=== PATIENT | male | born 1980 | race Caucasian/White ===

== ENCOUNTER 2017-03-01 14:30 | Emergency (ER) | payer OTHER ==
[2017-03-01 14:54] VITALS: BP 110/63; PULSE 71; RESP 18; TEMP 97.6
--- NOTE | 2017-03-01 15:15 | ED ---
General Adult HPI - General Chief complaint: Recheck/Abnormal Lab/Rx Stated complaint: Rx Refill Time Seen by Provider: 03/01/17 14:59 Source: patient, RN notes reviewed Mode of arrival: ambulatory Limitations: no limitations - History of Present Illness Initial comments: 36-year-old male presents to the emergency department with a chief complaint of medication refill. He states that he needs his Xanax and Adderall filled. He states he recently moved here from [place] and he contacted [facility] and is unable to get in for them for 6 months he states that he was informed to come here to help fill the gap. Patient states that he was hoping that maybe we can give him a prescription for these. He is hoping that he can get a month's supply. Patient denies any recent fever, chills, shortness of breath, chest pain, back pain, abdominal pain, nausea vomiting, numbness or tingling, dysuria or hematuria, constipation or diarrhea, headaches or visual changes, or any other current symptoms. - Related Data Home Medications Medication Instructions Recorded Confirmed ALPRAZolam [Xanax] 1 mg PO TID PRN 03/01/17 03/01/17 Dextroamphetamine/Amphetamine 25 mg PO QAM 03/01/17 03/01/17 [Adderall Xr] Allergies Allergy/AdvReac Type Severity Reaction Status Date / Time No Known Allergies Allergy Verified 03/01/17 14:51 Review of Systems ROS Statement: Those systems with pertinent positive or pertinent negative responses have been documented in the HPI. ROS Other: All systems not noted in ROS Statement are negative. Past Medical History Past Medical History: No Reported History History of Any Multi-Drug Resistant Organisms: None Reported Past Surgical History: Back Surgery Past Psychological History: ADD/ADHD, Anxiety Smoking Status: Current every day smoker Past Alcohol Use History: None Reported Past Drug Use History: None Reported General Exam Limitations: no limitations General appearance: alert, in no apparent distress ENT exam: Present: normal exam, mucous membranes moist Neck exam: Present: normal inspection. Absent: tenderness, meningismus, lymphadenopathy Respiratory exam: Present: normal lung sounds bilaterally. Absent: respiratory distress, wheezes, rales, rhonchi, stridor Cardiovascular Exam: Present: regular rate, normal rhythm, normal heart sounds. Absent: systolic murmur, diastolic murmur, rubs, gallop, clicks Extremities exam: Present: normal inspection, full ROM, normal capillary refill. Absent: tenderness, pedal edema, joint swelling, calf tenderness Neurological exam: Present: alert, oriented X3 Psychiatric exam: Present: normal affect, normal mood Skin exam: Present: warm, dry, intact, normal color. Absent: rash Course Vital Signs 03/01/17 14:51 Temperature 97.6 F Pulse Rate 71 Respiratory 18 Rate Blood Pressure 110/63 O2 Sat by Pulse 96 Oximetry Medical Decision Making - Medical Decision Making 36-year-old male presents emergency Department in with a chief complaint of medication refill. At this time a maps report was run that showed that he filled 90 and external 11:15 private pay and then also 90 Xanax with private pay as well as 21 Xanax 11 7 private pay. At this time I do not even see any Adderall given to the patient since January. At this time I discussed with the patient I cannot refill his medications. I discussed that he needs to follow- up with his doctor. Patient states that all questions have the she'll be discharged. Disposition Clinical Impression: Encounter for medication refill Disposition: HOME SELF-CARE Condition: Stable Instructions: Alprazolam (By mouth) Additional Instructions: Please use medication as discussed. Please follow up with family doctor if symptoms have not improved over the next two days. Please return to the emergency room if your symptoms increase or worsen or for any other concerns. Please follow up with Dr. Sutherland to look for any additional medications that you may need. Referrals: Favio Sutherland MD [STAFF PHYSICIAN] - 1-2 days Time of Disposition: 15:15
== END 2017-03-01 15:24 | disposition home or self-care (01) ==
LOC: EC 14:30
DX: Z76.0 Encounter for issue of repeat prescription (principal); F90.9 Attention-deficit hyperactivity disorder, unspecified type; F17.200 Nicotine dependence, unspecified, uncomplicated; Z79.899 Other long term (current) drug therapy
CPT/HCPCS: 99282

== ENCOUNTER → 2018-01-03 | Outpatient (CLI) | payer OTHER ==
--- NOTE | 2018-01-03 15:28 | XR ---
EXAMINATION TYPE: XR thoracic spine complete DATE OF EXAM: 01/03/2018 COMPARISON: NONE HISTORY: Pain Alignment is anatomic. There is no compression deformities. Vertebral body height and disc interspa augusto are maintained. IMPRESSION: 1. No acute abnormality. If symptoms persist recommend follow-up MRI.
--- NOTE | 2018-01-03 15:37 | XR ---
EXAM TYPE: LUMBAR SPINE X RAY SERIES COMPARISON: NONE HISTORY: Back pain TECHNIQUE: 7 views are submitted according flexion-extension lateral views. FINDINGS: There is a chronic appearing superior endplate compression fracture of L2. Vertebral body height is m aintained at remaining levels. Disc spaces are within normal limits. No spondylolisthesis. No diagnos tic evidence of spondylolysis. Pedicles are intact. Transverse processes appear intact. Alignment appears to be stable on flexion and extension views IMPRESSION: 1. Chronic appearing compression fracture superior endplate L2.
== END | disposition home or self-care (01) ==
LOC: RADXRMAIN 14:03
DX: M84.48XA Pathological fracture, other site, initial encounter for fracture (principal); M54.6 Pain in thoracic spine
CPT/HCPCS: 72072; 72114

== ENCOUNTER → 2018-05-05 | Outpatient (CLI) | payer OTHER ==
--- NOTE | 2018-05-05 13:40 | MR ---
EXAMINATION TYPE: MR lumbar spine wo con DATE OF EXAM: 05/05/2018 COMPARISON: Prior plain film 01/03/2018 HISTORY: Back pain TECHNIQUE: Multiplanar, multisequence images of the lumbar spine were acquired. L1-L2: Normal disc appearance without desiccation. No herniation, protrusion or disc bulging. No ca nal stenosis is present. Foramina are patent bilaterally. L2-L3: Minimal posterior disc bulge causes mild anterior mass effect on the thecal sac. L3-L4: Normal disc appearance without desiccation. No herniation, protrusion or disc bulging. No ca nal stenosis is present. Foramina are patent bilaterally. L4-L5: Minimal posterior disc bulge contacts the anterior thecal sac. No significant central stenosis or foraminal encroachment. L5-S1: Normal disc appearance without desiccation. No herniation, protrusion or disc bulging. No ca nal stenosis is present. Foramina are patent bilaterally. Lumbar segments are intact. No paraspinal masses are identified. Conus medullaris has a normal appe arance. Mild anterior wedging at L2 is again noted with slight resulting kyphosis. Bone marrow signal is maintained. Lumbar vertebral bodies show maintained alignment. 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 IMPRESSION: Mild degenerative disc. Chronic anterior wedge compression deformity L2.
== END | disposition home or self-care (01) ==
LOC: RADMRIMAIN 09:52
PROVIDERS: ATTEND Physician Assistant Medical
DX: M51.36 Other intervertebral disc degeneration, lumbar region (principal); M43.8X6 Other specified deforming dorsopathies, lumbar region
CPT/HCPCS: 72148

== ENCOUNTER 2019-03-01 18:36 | Emergency (ER) | payer OTHER ==
[2019-03-01 18:45] VITALS: TEMP 97.9
[2019-03-01] MEDS ORDERED: SODIUM CHLORIDE 0.9% 500 ML 500 ML IV STA (18:52)
[2019-03-01] MEDS ORDERED: LORazepam 2 MG/ML INJ IV STA (18:52)
[2019-03-01] MEDS ORDERED: SODIUM CHLORIDE 0.9% 1,000 ML IV STA ×3 (18:52→21:13)
--- NOTE | 2019-03-01 18:55 | ED ---
Alcohol HPI - General Chief Complaint: Psychiatric Symptoms Stated Complaint: ETOH withdrawal Time Seen by Provider: 03/01/19 18:52 Source: patient, family Mode of arrival: ambulatory Limitations: no limitations, altered mental status - History of Present Illness Initial Comments: This is a 30-year-old male the ER for evaluation of alcohol intoxication delirium hospital call withdrawal. Denying other drug abuse today. 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(s) Previous Visits for Alcohol Intoxication?: Yes Recent Trauma: No Associated Symptoms: nausea, depression Treatments Prior to Arrival: none Chronic Alcohol Use: Yes - Related Data Home Medications Medication Instructions Recorded Confirmed ALPRAZolam [Xanax] 1 mg PO TID PRN 03/01/17 03/01/19 Omeprazole 20 mg PO DAILY 03/01/19 03/01/19 Rosuvastatin Calcium [Crestor] 40 mg PO HS 03/01/19 03/01/19 Allergies Allergy/AdvReac Type Severity Reaction Status Date / Time No Known Allergies Allergy Verified 03/01/19 23:12 Review of Systems ROS Statement: Those systems with pertinent positive or pertinent negative responses have been documented in the HPI. ROS Other: All systems not noted in ROS Statement are negative. Past Medical History Past Medical History: No Reported History History of Any Multi-Drug Resistant Organisms: None Reported Past Surgical History: Back Surgery Past Psychological History: ADD/ADHD, Anxiety Smoking Status: Current every day smoker Past Alcohol Use History: Daily, Heavy Past Drug Use History: None Reported General Exam Limitations: no limitations General appearance: alert, anxious, in distress Head exam: Present: atraumatic, normocephalic, normal inspection Eye exam: Present: normal appearance, PERRL, EOMI. Absent: scleral icterus, con junctival injection, periorbital swelling ENT exam: Present: normal exam, mucous membranes moist Neck exam: Present: normal inspection. Absent: tenderness, meningismus, lymphadenopathy Respiratory exam: Present: normal lung sounds bilaterally. Absent: respiratory distress, wheezes, rales, rhonchi, stridor Cardiovascular Exam: Present: normal rhythm, tachycardia, normal heart sounds. Absent: systolic murmur, diastolic murmur, rubs, gallop, clicks GI/Abdominal exam: Present: soft, normal bowel sounds. Absent: distended, tenderness, guarding, rebound, rigid Extremities exam: Present: normal inspection, full ROM, normal capillary refill. Absent: tenderness, pedal edema, joint swelling, calf tenderness Back exam: Present: normal inspection Neurological exam: Present: alert, oriented X3, CN II-XII intact Psychiatric exam: Present: normal affect, normal mood Skin exam: Present: warm, dry, intact, normal color. Absent: rash Course Vital Signs 03/01/19 03/01/19 18:41 21:31 Temperature 97.9 F Pulse Rate 131 H 85 Respiratory 18 17 Rate Blood Pressure 131/89 108/80 O2 Sat by Pulse 93 L 96 Oximetry - Reevaluation(s) Reevaluation #1: 03/01/19 23:14 Medical records reviewed patient is significantly elevated alcohol showing no signs withdrawal currently Reevaluation #2: 03/01/19 23:14 Patient is not homicidal or suicidal no need for psychiatric evaluation Reevaluation #3: 03/01/19 23:14 Spoke with patient at length, questions answered regarding withdrawal able to return if symptoms worsen Medical Decision Making - Medical Decision Making 38 male presented for evaluation of alcohol abuse alcoholism. Patient does ad martinez to drinking today, concerned he wants help with detox patient given instructions here by alcohol withdrawal will be given medication for a few days and patient can be discharged home - Lab Data Result diagrams: 03/01/19 19:07 03/01/19 19:07 Lab Results 03/01/19 03/01/19 Range/Units 19:07 19:07 WBC 9.0 (3.8-10.6) k/uL RBC 5.32 (4.30-5.90) m/uL Hgb 19.0 H (13.0-17.5) gm/dL Hct 51.1 (39.0-53.0) % MCV 96.1 (80.0-100.0) fL MCH 35.7 H (25.0-35.0) pg MCHC 37.2 H (31.0-37.0) g/dL RDW 11.8 (11.5-15.5) % Plt Count 235 (150-450) k/uL Neutrophils % 28 % Lymphocytes % 62 % Monocytes % 4 % Eosinophils % 3 % Basophils % 1 % Neutrophils # 2.5 (1.3-7.7) k/uL Lymphocytes # 5.6 H (1.0-4.8) k/uL Monocytes # 0.4 (0-1.0) k/uL Eosinophils # 0.3 (0-0.7) k/uL Basophils # 0.1 (0-0.2) k/uL Manual Slide Review Performed Poikilocytosis (manual Present Sodium 144 (137-145) mmol/L Potassium 4.7 (3.5-5.1) mmol/L Chloride 109 H (98-107) mmol/L Carbon Dioxide 23 (22-30) mmol/L Anion Gap 12 mmol/L BUN 23 H (9-20) mg/dL Creatinine 1.09 (0.66-1.25) mg/dL Est GFR (CKD-EPI)AfAm >90 (>60 ml/min/1.73 sqM) Est GFR (CKD-EPI)NonAf 86 (>60 ml/min/1.73 sqM) Glucose 116 H (74-99) mg/dL Calcium 9.1 (8.4-10.2) mg/dL Phosphorus 4.3 (2.5-4.5) mg/dL Magnesium 2.1 (1.6-2.3) mg/dL Total Bilirubin 0.5 (0.2-1.3) mg/dL AST 46 (17-59) U/L ALT 21 (21-72) U/L Alkaline Phosphatase 81 (38-126) U/L Total Protein 8.6 H (6.3-8.2) g/dL Albumin 4.8 (3.5-5.0) g/dL Lipase 322 H (23-300) U/L Salicylates 1.0 mg/dL Acetaminophen <10.0 ug/mL Serum Alcohol 272 H* mg/dL Disposition Clinical Impression: Alcohol abuse, Alcohol withdrawal Disposition: HOME SELF-CARE Condition: Fair Instructions (If sedation given, give patient instructions): Alcohol Withdrawal (ED) Is patient prescribed a controlled substance at d/c from ED?: No Referrals: Paolo Dominguez NPC [Primary Care Provider] - 1-2 days
[2019-03-01 19:23] LABS: ALT 21 U/L (21-72); AST 46 U/L (17-59); Acetaminophen <10.0 ug/mL; African American GFR (CKD) >90 (>60 ml/min/1.73 sqM); Albumin 4.8 g/dL (3.5-5.0); Alkaline Phosphatase 81 U/L (38-126); Anion Gap 12 mmol/L; Blood Urea Nitrogen 23 mg/dL (9-20); Calcium 9.1 mg/dL (8.4-10.2); Carbon Dioxide 23 mmol/L (22-30); Chloride 109 mmol/L (98-107); Glucose 116 mg/dL (74-99); Magnesium 2.1 mg/dL (1.6-2.3); Non-African American GFR(CKD) 86 (>60 ml/min/1.73 sqM); Phosphorus 4.3 mg/dL (2.5-4.5); Potassium 4.7 mmol/L (3.5-5.1); Sodium 144 mmol/L (137-145); Total Bilirubin 0.5 mg/dL (0.2-1.3); Total Protein 8.6 g/dL (6.3-8.2)
[2019-03-01 19:27] LABS: Basophils # (A) 0.1 k/uL (0-0.2); Basophils % (A) 1 %; Eosinophils # (A) 0.3 k/uL (0-0.7); Eosinophils % (A) 3 %; HCT 51.1 % (39.0-53.0); Lymphocytes # (A) 5.6 k/uL (1.0-4.8); Lymphocytes % (A) 62 %; MCH 35.7 pg (25.0-35.0); MCHC 37.2 g/dL (31.0-37.0); MCV 96.1 fL (80.0-100.0); Mean Platelet Volume 5.8; Monocytes # (A) 0.4 k/uL (0-1.0); Monocytes % (A) 4 %; Neutrophils # (A) 2.5 k/uL (1.3-7.7); Neutrophils % (A) 28 %; Platelet Count 235 k/uL (150-450); RBC 5.32 m/uL (4.30-5.90); RDW 11.8 % (11.5-15.5)
[2019-03-01 19:32] LABS: Alcohol 272 mg/dL
[2019-03-01 19:35] LABS: Poikilocytosis (M) Present
[2019-03-01] MEDS ORDERED: THIAMINE 100 MG in SODIUM CHLORIDE 0.9% 50 ML IVPB STA (21:13)
[2019-03-01] MEDS ORDERED: ONDANSETRON 4 MG/2 ML VIAL IVP STA (23:13)
[2019-03-01] MEDS ORDERED: DIAZEPAM 5 MG/ML 2 ML INJ IVP STA (23:13)
[2019-03-01] MEDS ORDERED: PANTOPRAZOLE 40 MG/10 ML VIAL IVP STA (23:13)
[2019-03-01] MEDS ORDERED: ONDANSETRON 4 MG ODT STARTER PACK 2 TAB BTL PO STA (23:17)
--- NOTE | 2019-03-01 23:18 | ED ---
Medical Decision Making - Medical Decision Making This is an addendum resected prescription of controlled substance, Valium, 3 days no history of substance abuse aside from alcohol - Lab Data Result diagrams: 03/01/19 19:07 03/01/19 19:07 Lab Results 03/01/19 03/01/19 Range/Units 19:07 19:07 WBC 9.0 (3.8-10.6) k/uL RBC 5.32 (4.30-5.90) m/uL Hgb 19.0 H (13.0-17.5) gm/dL Hct 51.1 (39.0-53.0) % MCV 96.1 (80.0-100.0) fL MCH 35.7 H (25.0-35.0) pg MCHC 37.2 H (31.0-37.0) g/dL RDW 11.8 (11.5-15.5) % Plt Count 235 (150-450) k/uL Neutrophils % 28 % Lymphocytes % 62 % Monocytes % 4 % Eosinophils % 3 % Basophils % 1 % Neutrophils # 2.5 (1.3-7.7) k/uL Lymphocytes # 5.6 H (1.0-4.8) k/uL Monocytes # 0.4 (0-1.0) k/uL Eosinophils # 0.3 (0-0.7) k/uL Basophils # 0.1 (0-0.2) k/uL Manual Slide Review Performed Poikilocytosis (manual Present Sodium 144 (137-145) mmol/L Potassium 4.7 (3.5-5.1) mmol/L Chloride 109 H (98-107) mmol/L Carbon Dioxide 23 (22-30) mmol/L Anion Gap 12 mmol/L BUN 23 H (9-20) mg/dL Creatinine 1.09 (0.66-1.25) mg/dL Est GFR (CKD-EPI)AfAm >90 (>60 ml/min/1.73 sqM) Est GFR (CKD-EPI)NonAf 86 (>60 ml/min/1.73 sqM) Glucose 116 H (74-99) mg/dL Calcium 9.1 (8.4-10.2) mg/dL Phosphorus 4.3 (2.5-4.5) mg/dL Magnesium 2.1 (1.6-2.3) mg/dL Total Bilirubin 0.5 (0.2-1.3) mg/dL AST 46 (17-59) U/L ALT 21 (21-72) U/L Alkaline Phosphatase 81 (38-126) U/L Total Protein 8.6 H (6.3-8.2) g/dL Albumin 4.8 (3.5-5.0) g/dL Lipase 322 H (23-300) U/L Salicylates 1.0 mg/dL Acetaminophen <10.0 ug/mL Serum Alcohol 272 H* mg/dL Disposition Clinical Impression: Alcohol abuse, Alcohol withdrawal Disposition: HOME SELF-CARE Condition: Fair Instructions (If sedation given, give patient instructions): Alcohol Withdrawal (ED) Prescriptions: Diazepam [Valium] 5 mg PO Q8HR PRN 3 Days #9 tab PRN Reason: Alcohol Withdrawal Is patient prescribed a controlled substance at d/c from ED?: Yes When asked, does pt state using other controlled substances?: No If prescribed controlled substance>3 days was MAPS reviewed?: Prescribed <3 Days Referrals: Paolo Dominguez, NPC [Primary Care Provider] - 1-2 days
[2019-03-01 23:19] LABS: Appearance,Urine Clear (Clear); Bilirubin,Urine Negative (Negative); Blood,Urine Negative (Negative); Color,Urine Colorless; Glucose,Urine (UA) Negative (Negative); Ketones,Urine Negative (Negative); Leukocyte Esterase,Urine Negative (Negative); Nitrite,Urine Negative (Negative); Protein,Urine Negative (Negative); Specific Gravity,Urine 1.007 (1.001-1.035); Urobilinogen,Urine <2.0 mg/dL (<2.0)
[2019-03-01 23:30] LABS: Amphetamine Screen,Urine Not Detected (NotDetected); Barbiturate Screen,Urine Not Detected (NotDetected); Benzodiazepines Screen,Urine Detected (NotDetected); Cocaine Screen,Urine Not Detected (NotDetected); Methadone Screen, Urine Not Detected (NotDetected); Opiate Screen,Urine Not Detected (NotDetected); Oxycodone Screen, Urine Not Detected (NotDetected); Phencyclidine Screen,Urine Not Detected (NotDetected); Tricyclic Antidepressant,Urine Not Detected (NotDetected); Urn Cannabinoid Scrn Not Detected (NotDetected)
[2019-03-01 23:40] VITALS: BP 106/82; PULSE 81; RESP 18
== END 2019-03-02 00:33 | disposition home or self-care (01) ==
LOC: EC 18:36
DX: F10.239 Alcohol dependence with withdrawal, unspecified (principal); F32.9 Major depressive disorder, single episode, unspecified; F17.200 Nicotine dependence, unspecified, uncomplicated; Z79.899 Other long term (current) drug therapy
CPT/HCPCS: 99284; 96374; 96375 ×4; 96361 ×4; 82075; 36415; 80053; 83690; 83735; 84100; 85025; 81003; 80306; 83520; G0480 ×2; J2060; J3411; J3360; J2405; S0119; C9113; 80320; 80329

== ENCOUNTER 2019-04-30 17:32 | Inpatient (IN) | payer MEDICAID, OTHER ==
--- NOTE | 2019-04-30 18:31 | ED ---
General Adult HPI - General Source: patient, EMS Mode of arrival: EMS Limitations: no limitations <Codey Rainey - Last Filed: 04/30/19 20:26> <Silvano Walker - Last Filed: 05/03/19 16:25> - General Chief complaint: Alcohol Stated complaint: ETOH Time Seen by Provider: 04/30/19 17:58 - History of Present Illness Initial comments: Dictation was produced using [employer] dictation software. please excuse any grammatical, word or spelling errors. Chief Complaint: 38-year-old male past medical history of alcohol abuse presents with suicidal ideation. History of Present Illness: He-year-old male using daily alcoholic. Patient was brought in by EMS. Patient seeking help. He has been feeling suicidal for the last several months. Patient states he is depressed because he is living a poor example to his one child that he is so custody 4. States that he is a daily drinker. He does feel like harming himself because he is depressed about his current life. He suppress that he still lives with his parents and his 30 years old. Patient plans to sit in the garage with the car on in hopes that he would harm himself. She states he had multiple colic beverages today. The ROS documented in this emergency department record has been reviewed and confirmed by me. Those systems with pertinent positive or negative responses have been documented in the HPI. All other systems are other negative and/or noncontributory. PHYSICAL EXAM: General Impression: Alert and oriented x3, not in acute distress, smells of EtOH HEENT: Normocephalic atraumatic, extra-ocular movements intact, pupils equal and reactive to light bilaterally, mucous membranes moist. Cardiovascular: Heart regular rate and rhythm, S1&S2 audible, no murmurs, rubs or gallops Chest: Lungs clear to auscultation bilaterally, no rhonchi, no wheeze, no rales Abdomen: Bowel sounds present, abdomen soft, non-tender, non-distended, no organomegaly Musculoskeletal: Pulses present and equal in all extremities, no peripheral edema Motor: no focal deficits noted Neurological: CN II-XII grossly intact, no focal motor or sensory deficits noted Skin: Intact with no visualized rashes Psych: Depressed ED course: 38 y Old male presents with EtOH intoxication and suicidal ideation. As upon arrival are within acceptable limits. Patient has suicide with detailed plan. No homicidal ideation. No visual auditory hallucinations. Laboratory evaluation obtained. CBC unremarkable. Metabolic panel shows sodium 146. There is mild anion gap acidosis likely secondary to alcoholic ketoacidosis. Electrolyte abnormality likely secondary to be beer potomania. His alcohol level is 236. Patient given intravenous fluids. Pending clinical sobriety for EPS evaluation. He was monitored for possible development of EtOH withdrawal. Suicide precautions in place. (Codey Rainey) - Related Data Home Medications Medication Instructions Recorded Confirmed ALPRAZolam [Xanax] 1 mg PO TID PRN 03/01/17 03/01/19 Omeprazole 20 mg PO DAILY 03/01/19 03/01/19 Rosuvastatin Calcium [Crestor] 40 mg PO HS 03/01/19 03/01/19 Previous Rx's Medication Instructions Recorded Diazepam [Valium] 5 mg PO Q8HR PRN 3 Days #9 tab 03/01/19 Allergies Allergy/AdvReac Type Severity Reaction Status Date / Time No Known Allergies Allergy Verified 03/01/19 23:12 Review of Systems ROS Other: All systems not noted in ROS Statement are negative. <Codey Rainey - Last Filed: 04/30/19 20:26> ROS Other: All systems not noted in ROS Statement are negative. <Silvano Walker - Last Filed: 05/03/19 16:25> ROS Statement: Those systems with pertinent positive or pertinent negative responses have been documented in the HPI. Past Medical History Past Medical History: No Reported History History of Any Multi-Drug Resistant Organisms: None Reported Past Surgical History: Back Surgery Past Psychological History: ADD/ADHD, Anxiety Smoking Status: Current every day smoker Past Alcohol Use History: Daily, Heavy Past Drug Use History: None Reported <Codey Rainey - Last Filed: 04/30/19 20:26> - Past Family History Father Family Medical History: Diabetes Mellitus Mother Family Medical History: Diabetes Mellitus Additional Family Medical History / Comment(s): immune deficiency <Silvano Walker - Last Filed: 05/03/19 16:25> General Exam Limitations: no limitations <Codey Rainey - Last Filed: 04/30/19 20:26> Course Vital Signs 01/20/20 01/21/20 18:05 01:10 Temperature 98.3 F 98.2 F Pulse Rate 85 82 Respiratory 20 17 Rate Blood Pressure 125/69 113/76 O2 Sat by Pulse 95 100 Oximetry Medical Decision Making - Lab Data Result diagrams: 04/30/19 19:21 04/30/19 19:21 <Codey Rainey - Last Filed: 04/30/19 20:26> - Lab Data Result diagrams: 04/30/19 19:21 05/01/19 09:06 <Silvano Walker - Last Filed: 05/03/19 16:25> - Medical Decision Making 38 male to the ED for psychiatric evaluation also intoxicated (alcohol) patient will be transferred for inpatient psychiatric evaluation and treatment. (Silvano Walker) - Lab Data Lab Results 04/30/19 04/30/19 04/30/19 Range/Units 19:21 19:21 19:29 WBC 6.7 (3.8-10.6) k/uL RBC 5.22 (4.30-5.90) m/uL Hgb 18.0 H (13.0-17.5) gm/dL Hct 51.9 (39.0-53.0) % MCV 99.4 (80.0-100.0) fL MCH 34.4 (25.0-35.0) pg MCHC 34.6 (31.0-37.0) g/dL RDW 12.1 (11.5-15.5) % Plt Count 179 (150-450) k/uL Neutrophils % 39 % Lymphocytes % 53 % Monocytes % 3 % Eosinophils % 2 % Basophils % 1 % Neutrophils # 2.6 (1.3-7.7) k/uL Lymphocytes # 3.6 (1.0-4.8) k/uL Monocytes # 0.2 (0-1.0) k/uL Eosinophils # 0.1 (0-0.7) k/uL Basophils # 0.0 (0-0.2) k/uL Sodium 146 H (137-145) mmol/L Potassium 3.9 (3.5-5.1) mmol/L Chloride 113 H (98-107) mmol/L Carbon Dioxide 21 L (22-30) mmol/L Anion Gap 12 mmol/L BUN 12 (9-20) mg/dL Creatinine 0.97 (0.66-1.25) mg/dL Est GFR (CKD-EPI)AfAm >90 (>60 ml/min/1.73 sqM) Est GFR (CKD-EPI)NonAf >90 (>60 ml/min/1.73 sqM) Glucose 110 H (74-99) mg/dL Calcium 8.9 (8.4-10.2) mg/dL Magnesium 2.1 (1.6-2.3) mg/dL Urine Opiates Screen Not Detected (NotDetected) Ur Oxycodone Screen Not Detected (NotDetected) Urine Methadone Screen Not Detected (NotDetected) Ur Propoxyphene Screen Not Detected (NotDetected) Ur Barbiturates Screen Not Detected (NotDetected) U Tricyclic Antidepress Not Detected (NotDetected) Ur Phencyclidine Scrn Not Detected (NotDetected) Ur Amphetamines Screen Not Detected (NotDetected) U Methamphetamines Scrn Not Detected (NotDetected) U Benzodiazepines Scrn Detected H (NotDetected) Urine Cocaine Screen Not Detected (NotDetected) U Marijuana (THC) Screen Not Detected (NotDetected) Serum Alcohol 236 H* mg/dL Disposition <Codey Rainey - Last Filed: 04/30/19 20:26> Is patient prescribed a controlled substance at d/c from ED?: No <Silvano Walker - Last Filed: 05/03/19 16:25> Clinical Impression: Depression, Alcohol intoxication, Suicidal ideation Disposition: TRANSFER TO PSYCH HOSP/UNIT Condition: Fair
[2019-04-30] MEDS ORDERED: NICOTINE 14MG/24HR PATCH TRANSDERM STA (19:18)
[2019-04-30 19:33] LABS: Basophils % (A) 1 %; Eosinophils # (A) 0.1 k/uL (0-0.7); Eosinophils % (A) 2 %; HCT 51.9 % (39.0-53.0); Lymphocytes # (A) 3.6 k/uL (1.0-4.8); Lymphocytes % (A) 53 %; MCH 34.4 pg (25.0-35.0); MCHC 34.6 g/dL (31.0-37.0); MCV 99.4 fL (80.0-100.0); Mean Platelet Volume 7.5; Monocytes # (A) 0.2 k/uL (0-1.0); Monocytes % (A) 3 %; Neutrophils # (A) 2.6 k/uL (1.3-7.7); Neutrophils % (A) 39 %; Platelet Count 179 k/uL (150-450); RBC 5.22 m/uL (4.30-5.90); RDW 12.1 % (11.5-15.5); WBC 6.7 k/uL (3.8-10.6)
[2019-04-30 19:42] LABS: African American GFR (CKD) >90 (>60 ml/min/1.73 sqM); Anion Gap 12 mmol/L; Blood Urea Nitrogen 12 mg/dL (9-20); Calcium 8.9 mg/dL (8.4-10.2); Carbon Dioxide 21 mmol/L (22-30); Chloride 113 mmol/L (98-107); Glucose 110 mg/dL (74-99); Magnesium 2.1 mg/dL (1.6-2.3); Non-African American GFR(CKD) >90 (>60 ml/min/1.73 sqM); Potassium 3.9 mmol/L (3.5-5.1); Sodium 146 mmol/L (137-145)
[2019-04-30 19:46] LABS: Alcohol 236 mg/dL
[2019-04-30 19:52] LABS: Amphetamine Screen,Urine Not Detected (NotDetected); Barbiturate Screen,Urine Not Detected (NotDetected); Benzodiazepines Screen,Urine Detected (NotDetected); Cocaine Screen,Urine Not Detected (NotDetected); Methadone Screen, Urine Not Detected (NotDetected); Opiate Screen,Urine Not Detected (NotDetected); Oxycodone Screen, Urine Not Detected (NotDetected); Phencyclidine Screen,Urine Not Detected (NotDetected); Tricyclic Antidepressant,Urine Not Detected (NotDetected); Urn Cannabinoid Scrn Not Detected (NotDetected)
[2019-05-01] MEDS ORDERED: MAG HYDROX/AL HYDROX/SIMETH 30 ML CUP PO PRN (04:24)
[2019-05-01] MEDS ORDERED: ZIPRASIDONE 20 MG VIAL IM PRN (04:24)
[2019-05-01] MEDS ORDERED: MAGNESIUM HYDROXIDE 2,400 MG/10 ML CUP PO PRN (04:24)
[2019-05-01] MEDS: NICOTINE 21MG/24HR PATCH TRANSDERM SCH (09:21)
[2019-05-01 09:49] LABS: ALT 20 U/L (4-49); AST 52 U/L (17-59); African American GFR (CKD) >90 (>60 ml/min/1.73 sqM); Albumin 4.7 g/dL (3.5-5.0); Alkaline Phosphatase 61 U/L (38-126); Anion Gap 6 mmol/L; Bilirubin, Delta 0.8 mg/dL (0.0-0.2); Bilirubin,Unconjugated 1.2 mg/dL (0.0-1.1); Blood Urea Nitrogen 14 mg/dL (9-20); Calcium 9.3 mg/dL (8.4-10.2); Carbon Dioxide 27 mmol/L (22-30); Chloride 107 mmol/L (98-107); Cholesterol 164 mg/dL (<200); Glucose 90 mg/dL (74-99); HDL Cholesterol 73 mg/dL (40-60); LDL Cholesterol,Calculated 62 mg/dL (0-99); Non-African American GFR(CKD) >90 (>60 ml/min/1.73 sqM); Sodium 140 mmol/L (137-145); Total Protein 8.1 g/dL (6.3-8.2); Triglycerides 144 mg/dL (<150)
[2019-05-01 09:56] LABS: Potassium 4.6 mmol/L (3.5-5.1)
[2019-05-01] MEDS: LORazepam 1 MG TAB PO PRN ×2 (11:40→17:44)
--- NOTE | 2019-05-01 11:41 | P.HP ---
Psychiatric H&P - . History & Physical: Allergies Allergy/AdvReac Type Severity Reaction Status Date / Time No Known Allergies Allergy Verified 03/01/19 23:12 Vital Signs Temp 97.0 F L 05/01/19 04:46 Pulse 78 05/01/19 04:46 Resp 16 05/01/19 04:46 BP 108/85 05/01/19 04:46 Pulse Ox 96 05/01/19 04:46 Intake & Output 04/30/19 05/01/19 05/01/19 18:59 06:59 18:59 Weight 75.296 kg 61.802 kg Laboratory Last Values WBC 6.7 k/uL (3.8-10.6) 04/30/19 19: RBC 5.22 m/uL (4.30-5.90) 04/30/19 19: Hgb 18.0 gm/dL (13.0-17.5) H 04/30/19 19: Hct 51.9 % (39.0-53.0) 04/30/19 19: MCV 99.4 fL (80.0-100.0) 04/30/19 19: MCH 34.4 pg (25.0-35.0) 04/30/19 19: MCHC 34.6 g/dL (31.0-37.0) 04/30/19 19: RDW 12.1 % (11.5-15.5) 04/30/19 19: Plt Count 179 k/uL (150-450) 04/30/19 19: Neutrophils % 39 % 04/30/19 19: Lymphocytes % 53 % 04/30/19 19: Monocytes % 3 % 04/30/19 19:21 Eosinophils % 2 % 04/30/19 19: Basophils % 1 % 04/30/19 19: Neutrophils # 2.6 k/uL (1.3-7.7) 04/30/19 19: Lymphocytes # 3.6 k/uL (1.0-4.8) 04/30/19 19: Monocytes # 0.2 k/uL (0-1.0) 04/30/19 19: Eosinophils # 0.1 k/uL (0-0.7) 04/30/19 19: Basophils # 0.0 k/uL (0-0.2) 04/30/19 19:21 Sodium 140 mmol/L (137-145) 05/01/19 09:06 Potassium 4.6 mmol/L (3.5-5.1) 05/01/19 09:06 Chloride 107 mmol/L (98-107) 05/01/19 09:06 Carbon Dioxide 27 mmol/L (22-30) 05/01/19 09:06 Anion Gap 6 mmol/L 05/01/19 09:06 BUN 14 mg/dL (9-20) 05/01/19 09:06 Creatinine 0.85 mg/dL (0.66-1.25) 05/01/19 09:06 Est GFR (CKD-EPI)AfAm >90 (>60 ml/min/1.73 sqM) 05/01/19 09:06 Est GFR (CKD-EPI)NonAf >90 (>60 ml/min/1.73 sqM) 05/01/19 09:06 Glucose 90 mg/dL (74-99) 05/01/19 09:06 Calcium 9.3 mg/dL (8.4-10.2) 05/01/19 09:06 Magnesium 2.1 mg/dL (1.6-2.3) 04/30/19 19: Total Bilirubin 2.0 mg/dL (0.2-1.3) H 05/01/19 09:06 Conjugated Bilirubin 0.0 mg/dL (0.0-0.3) 05/01/19 09:06 Unconjugated Bilirubin 1.2 mg/dL (0.0-1.1) H 05/01/19 09:06 Delta Bilirubin 0.8 mg/dL (0.0-0.2) H 05/01/19 09:06 AST 52 U/L (17-59) 05/01/19 09:06 ALT 20 U/L (4-49) 05/01/19 09:06 Alkaline Phosphatase 61 U/L (38-126) 05/01/19 09:06 Total Protein 8.1 g/dL (6.3-8.2) 05/01/19 09:06 Albumin 4.7 g/dL (3.5-5.0) 05/01/19 09:06 Triglycerides 144 mg/dL (<150) 05/01/19 09:06 Cholesterol 164 mg/dL (<200) 05/01/19 09:06 LDL Cholesterol, Calc 62 mg/dL (0-99) 05/01/19 09:06 HDL Cholesterol 73 mg/dL (40-60) H 05/01/19 09:06 TSH 1.070 mIU/L (0.465-4.680) 05/01/19 09:06 Urine Opiates Screen Not Detected (NotDetected) 04/30/19 19:29 Ur Oxycodone Screen Not Detected (NotDetected) 04/30/19 19:29 Urine Methadone Screen Not Detected (NotDetected) 04/30/19 19:29 Ur Propoxyphene Screen Not Detected (NotDetected) 04/30/19 19:29 Ur Barbiturates Screen Not Detected (NotDetected) 04/30/19 19:29 U Tricyclic Antidepress Not Detected (NotDetected) 04/30/19 19:29 Ur Phencyclidine Scrn Not Detected (NotDetected) 04/30/19 19:29 Ur Amphetamines Screen Not Detected (NotDetected) 04/30/19 19:29 U Methamphetamines Scrn Not Detected (NotDetected) 04/30/19 19:29 U Benzodiazepines Scrn Detected (NotDetected) H 04/30/19 19:29 Urine Cocaine Screen Not Detected (NotDetected) 04/30/19 19:29 U Marijuana (THC) Screen Not Detected (NotDetected) 04/30/19 19:29 Serum Alcohol 236 mg/dL H* 04/30/19 19:21 05/01/19 11:35 IDENTIFYING DATA: This patient is a 38-year-old male who was admitted to the mental health unit for acute suicidal ideation. HPI: The patient states that he has been experiencing worsening symptoms of depression over the last year. At this point he has had suicidal thoughts and feels hopeless. He has been tearful his sleep has been impaired energy level has been poor. He has decreased interest in activities. He has increasing feelings of guilt as he has to rely on his parents for help. He has been more anxious. He describes a long history of generalized anxiety throughout his life and states he's been experiencing panic attacks about twice a week. Panic attacks are classic in nature with increased heart rate terms of breath nausea blurred vision etc. He reports no auditory or visual hallucinations or any specific delusions. He is reporting no hypomanic or manic episodes. He resides with his parents his father does have firearms but the patient states they are secured in a locked safe. PAST PSYCHIATRIC HISTORY: The patient's first inpatient psychiatric admission no history of suicide attempts. He briefly saw a psychiatrist years ago and was prescribed Xanax and Adderall. PMH: None reported ALLERGIES: NO KNOWN DRUG ALLERGIES MEDICATIONS: None CHEMICAL DEPENDENCY HISTORY: He has been drinking alcohol since the beginning of this past summer 4-5 times a week up to 8 12 ounce beers daily, he reports no blackouts he reports no symptoms of withdrawal. No use of marijuana or illicit drugs. He has never been placed in residential treatment for chemical dependency reasons. FAMILY PSYCHIATRIC HISTORY: He reports that a maternal cousin committed suicide numerous years ago FAMILY CHEMICAL DEPENDENCY HISTORY: He has uncles and a cousin who were alcohol dependent but now are sober SOCIAL HISTORY: The patient is 38 years old he is he resides with his parents he has custody of his 16-year-old son. 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 No history of service. He has 1 brother. He resides in [place]. He reports no abuse history, he states that several years ago he was arrested for retail fraud. MENTAL STATUS EXAM: He patient is a thin male appearing his stated age. Hygiene grooming adequate he is dressed in his own clothing. He is plea gilles cooperative soft-spoken. He does have spontaneous speech that is nonpressured. He is tearful during the session. He describes a depressed mood with ongoing anxiety. He reports continued hopelessness thinking. He admits to making suicidal statements in the emergency room. He reports no homicidal ideation intent or plan. He is reporting no auditory or visual hallucinations or any specific delusions. There is no evidence of hypomania or romario. He is oriented to person place and date he is able to name the days of the week backwards. He demonstrates no verbal or physical aggressiveness he demonstrates no involuntary repetitive movements. STRENGTHS/WEAKNESSES: X: Support from parents, housing weaknesses: Alcohol use, no current mental health treatment INTELLECTUAL FUNCTIONING: Average IMPRESSIONS: [] 1. Major depressive disorder recurrent severe without psychosis, generalized anxiety disorder, panic attacks, alcohol use disorder moderate PLAN: The patient has been admitted to the mental health unit voluntarily. We reviewed his presenting symptoms and treatment options. We discussed starting Zoloft 50 mg at bedtime for depression and anxiety symptoms as well as trazodone 50 mg at bedtime for sleep. We discussed potential benefits and side effects of both medications and his questions were answered. Ativan will be used as needed to prevent any alcohol withdrawal symptoms vital signs are stable at this time. Lab work reviewed. He has met with internal medicine for routine history and physical exam. Social work will meet with the patient to complete a psychosocial assessment and begin discharge planning. We did discuss the possibility of inpatient chemical dependency treatment and he will give that consideration.
[2019-05-01 14:52] VITALS: BMI 19.0
--- NOTE | 2019-05-01 18:56 | P.HPMEDMHU ---
History of Present Illness H&P Date: 05/01/19 Chief Complaint: depression Patient is a 38-year-old male with a past medical history of dyslipidemia which has since resolved, tobacco abuse, alcohol misuse who pres ented to the emergency department with complaints of depression and suicidal ideation. He has since been admitted to the mental health unit. Patient seen and examined at bedside. He denies any recent cough, cold, fever, flu, nausea, vomiting, diarrhea, or constipation. He reports he has had poor sleep recently and has been feeling very anxious. He does have intermittent palpitations related to his anxiety which has been ongoing for years and they have never found a problem when he has had this worked up. He reports that he used to take cholesterol medication but is taken off that quite some time ago by his primary care physician. He has no other complaints currently. Review of Systems Pertinent positives and negatives as discussed in HPI, a complete review of systems was performed and all other systems are negative. Past Medical History Past Medical History: GERD/Reflux Additional Past Medical History / Comment(s): L1 and L2 fractures with bracing History of Any Multi-Drug Resistant Organisms: None Reported Additional Past Surgical History / Comment(s): Right second knuckle pinning due to fracture Past Psychological History: ADD/ADHD, Anxiety, Depression Smoking Status: Current every day smoker (About 1/2 PPD) Past Alcohol Use History: Daily, Heavy Additional Past Alcohol Use History / Comment(s): 8 beers daily Past Drug Use History: None Reported - Past Family History Father Family Medical History: Diabetes Mellitus Mother Family Medical History: Diabetes Mellitus Additional Family Medical History / Comment(s): immune deficiency Medications and Allergies Home Medications Medication Instructions Recorded Confirmed Type ALPRAZolam [Xanax] 1 mg PO TID PRN 03/01/17 03/01/19 History Diazepam [Valium] 5 mg PO Q8HR PRN 3 Days #9 tab 03/01/19 Rx Omeprazole 20 mg PO DAILY 03/01/19 03/01/19 History Rosuvastatin Calcium [Crestor] 40 mg PO HS 03/01/19 03/01/19 History Allergies Allergy/AdvReac Type Severity Reaction Status Date / Time No Known Allergies Allergy Verified 03/01/19 23:12 Physical Exam Osteopathic Statement: *. No significant issues noted on an osteopathic structural exam other than those noted in the History and Physical/Consult. Vitals: Vital Signs Temp Pulse Pulse Resp BP BP Pulse Ox 05/01/19 04:46 97.0 F L 78 16 108/85 96 05/01/19 01:10 98.2 F 82 17 113/76 100 04/30/19 18:05 98.3 F 85 20 125/69 95 Intake and Output 04/30/19 05/01/19 05/01/19 22:59 06:59 14:59 Other: Weight 75.296 kg 61.802 kg General: non toxic, no distress, appears at stated age, normal weight Derm: no unusual rashes/lesions no unusual ecchymoses, warm, dry Head: atraumatic, normocephalic, symmetric Eyes: EOMI, no lid lag, anicteric sclera, pupils equal round reactive to light ENT: Nose and ears atraumatic, no thrush, no pharyngeal erythema Neck: No thyromegaly, no cervical lymphadenopathy, trachea midline, supple Mouth: no lip lesion, mucus membranes moist Cardiovascular: S1S2 reg, no murmur, positive posterior tibial pulse bilateral, no edema, capillary refill less than 2 seconds Lungs: CTA bilateral, no rhonchi, no rales , no accessory muscle use Abdominal: soft, nontender to palpation, no guarding, no appreciable organomegaly, normal bowel sounds Ext: no gross muscle atrophy, muscle strength 5 out of 5 in all 4 extremities grossly, no contractures, Neuro: CN II-XI grossly intact, light touch intact all 4 extremities, finger to nose within normal limits, Psych: Alert, oriented, appears anxious Cranial Nerve Examination - Cranial Nerves Cranial Nerve II- Optic: Intact Cranial Nerve III- Oculomotor: Intact Cranial Nerve IV- Trochlear: Intact Cranial Nerve V- Trigeminal: Intact Cranial Nerve - Abducens: Intact Cranial Nerve VII- Facial: Intact Cranial Nerve VIII- Auditory: Intact Cranial Nerve IX- Glossopharyngeal: Intact Cranial Nerve X- Vagus: Intact Cranial Nerve XI- Accessory: Intact Cranial Nerve XII- Hypoglossal: Intact Results CBC & Chem 7: 04/30/19 19:21 05/01/19 09:06 Labs: Abnormal Lab Results - Last 24 Hours (Table) 04/30/19 04/30/19 04/30/19 Range/Units 19:21 19:21 19:29 Hgb 18.0 H (13.0-17.5) gm/dL Sodium 146 H (137-145) mmol/L Chloride 113 H (98-107) mmol/L Carbon Dioxide 21 L (22-30) mmol/L Glucose 110 H (74-99) mg/dL Total Bilirubin (0.2-1.3) mg/dL Unconjugated Bilirubin (0.0-1.1) mg/dL Delta Bilirubin (0.0-0.2) mg/dL HDL Cholesterol (40-60) mg/dL U Benzodiazepines Scrn Detected H (NotDetected) Serum Alcohol 236 H* mg/dL 05/01/19 Range/Units 09:06 Hgb (13.0-17.5) gm/dL Sodium (137-145) mmol/L Chloride (98-107) mmol/L Carbon Dioxide (22-30) mmol/L Glucose (74-99) mg/dL Total Bilirubin 2.0 H (0.2-1.3) mg/dL Unconjugated Bilirubin 1.2 H (0.0-1.1) mg/dL Delta Bilirubin 0.8 H (0.0-0.2) mg/dL HDL Cholesterol 73 H (40-60) mg/dL U Benzodiazepines Scrn (NotDetected) Serum Alcohol mg/dL Thrombosis Risk Factor Assmnt - DVT/VTE Prophylaxis DVT/VTE Prophylaxis: Low risk, early ambulation encouraged Assessment and Plan Assessment: Alcoholism with impending DTs -Ativan management per mental health unit -Start thiamine and folic acid -Encourage sensation Tobacco abuse -Nicotine replacement -Cessation GERD -PPI Depression -Your psych management Thank you for allowing us to participate in the care of this pleasant patient. Do not hesitate to contact us with questions. Someone can be reached from the [facility] hospitalist group all hours of the day at [phone] or via perfect serve.
[2019-05-01 19:10] LABS: Hemoglobin A1C 4.8 % (4.0-6.0)
[2019-05-01] MEDS: SERTRALINE 50 MG TAB PO SCH (20:37)
[2019-05-01] MEDS: traZODone HCL 50 MG TAB PO SCH (20:37)
[2019-05-02] MEDS: LORazepam 1 MG TAB PO PRN ×2 (09:26→15:57)
[2019-05-02] MEDS: PANTOPRAZOLE 40 MG TABLET PO SCH (09:26)
[2019-05-02] MEDS: FOLIC ACID 1 MG TAB PO SCH (09:26)
[2019-05-02] MEDS: THIAMINE 100 MG TAB PO SCH (09:26)
[2019-05-02] MEDS: NICOTINE 21MG/24HR PATCH TRANSDERM SCH (09:26)
--- NOTE | 2019-05-02 13:55 | P.PN ---
Subjective Progress Note Date: 05/02/19 The patient seen in the chart was reviewed. Case was discussed with the staff in the team meeting. The patient reports doing okay but is still complains of feeling anxious. He remained withdrawn and isolative and does not attend an immediate therapy. The patient reports improved sleep last night. The patient denies any crying spells or panic attacks at this time. The patient reports some improvement in the withdrawal symptoms. The patient denies any auditory or visual hallucinations and denied any active suicidal or homicidal ideations at this time. The patient has been tolerating medications without any side effects at this time. Objective - Vital Signs Vital signs: Vital Signs Temp 97.8 F 05/02/19 06:46 Pulse 67 05/02/19 06:46 Resp 18 05/02/19 06:46 BP 106/66 05/02/19 06:46 Pulse Ox 96 05/01/19 04:46 Intake & Output 05/01/19 05/02/19 05/02/19 18:59 06:59 18:59 Weight 61.802 kg - Exam Mental Status Exam: General Appearance: Patient appears to be stated age is alert, directable. fPatient has fair eye contact. Behavior: Patient is seated without any agitated behavior. Appears to be anxious Speech: Patient's speech is goal-directed and nonpressured. soft tone. Mood/Affect: Patient reports their mood/anxiety is depressed, affect is congruent Suicidality/Homicidality: Patient reports having suicidal ideation. Perceptions: Patient reports auditory hallucinations. Though content/process: Paranoia Memory and concentration: AOX3, grossly intact for the purposes of this session. Judgment and insight: Limited - Labs CBC & Chem 7: 04/30/19 19:21 05/01/19 09:06 Assessment and Plan Assessment: Major depressive disorder recurrent severe without psychosis, generalized anxiety disorder, panic attacks, alcohol use disorder moderate Plan: Continue inpatient level of care due to need for further stabilization on medications Precautions: Continue 15 minutes check for safety. Consults internal medicine team for management of medical problems. Provide the patient individual, group therapy, substance use disorder counseling to give better insight and learn coping skills. Medications: Continue Zoloft 50 mg by mouth daily. Discharge patient to OUTPATIENT services upon a stabilization Expected LOS: 3-5 days
[2019-05-02] MEDS: SERTRALINE 50 MG TAB PO SCH (21:05)
[2019-05-02] MEDS: traZODone HCL 50 MG TAB PO SCH (21:05)
[2019-05-03] MEDS: LORazepam 1 MG TAB PO PRN ×2 (08:29→15:28)
[2019-05-03] MEDS: NICOTINE 21MG/24HR PATCH TRANSDERM SCH (08:29)
[2019-05-03] MEDS: THIAMINE 100 MG TAB PO SCH (08:29)
[2019-05-03] MEDS: FOLIC ACID 1 MG TAB PO SCH (08:29)
[2019-05-03] MEDS: PANTOPRAZOLE 40 MG TABLET PO SCH (08:29)
--- NOTE | 2019-05-03 11:23 | P.PN ---
Progress Note - Text Interval history: The patient is found in his room he follows me to an interview room. He states that he is tolerating the Zoloft without any side effect. He feels that his sleep is improved with the trazodone. Appetite is improving now that he is not using alcohol. Staff report that he has not been attending groups. He states that he doesn't do well in groups but he would give consideration. Staff met with the patient to discuss the possibility of inpatient chemical dependency treatment and he does not wish to pursue that at this time. He states he's having no urges for alcohol. He states he does not wish to have any medication prescribed for alcohol cravings as he does not have them. We reviewed the Zoloft. We discussed titrating the dose further and he is agreeable starting tomorrow. Mental status exam: The patient is a thin male appearing his stated age. He presents with adequate hygiene grooming eye contact is appropriate. He is pleasant cooperative. He remains calmly seated in the chair. He indicates his mood is starting to improve anxiety symptoms are still present. He feels safe in the hospital. He reports no thoughts of harming others. He is endorsing no auditory or visual hallucinations or any specific delusions. Insight and judgment slowly improving. He demonstrates no verbal or physical aggressiveness. He does not appear hypomanic or manic. He remains oriented to person place and date. Affect is constricted throughout the session. Plan: The patient will continue on the Zoloft we will plan to titrate that 200 mg at bedtime starting tomorrow. We're monitoring for any alcohol withdrawal symptoms. He is encouraged to attend groups. We will monitor him for safety. We will continue to discuss treatment options for his alcohol use disorder.
[2019-05-03] MEDS: SERTRALINE 50 MG TAB PO SCH (20:57)
[2019-05-03] MEDS: traZODone HCL 50 MG TAB PO SCH (20:57)
[2019-05-04] MEDS: THIAMINE 100 MG TAB PO SCH (08:40)
[2019-05-04] MEDS: NICOTINE 21MG/24HR PATCH TRANSDERM SCH (08:40)
[2019-05-04] MEDS: FOLIC ACID 1 MG TAB PO SCH (08:40)
[2019-05-04] MEDS: PANTOPRAZOLE 40 MG TABLET PO SCH (08:40)
[2019-05-04] MEDS: LORazepam 1 MG TAB PO PRN ×2 (08:42→16:59)
[2019-05-04] MEDS ORDERED: SERTRALINE 50 MG TAB PO ONE (10:07)
--- NOTE | 2019-05-04 10:13 | P.PN ---
Progress Note - Text Interval history: The patient is found in his room he follows me to an interview room. He indicates he still has significant feelings of anxiety that they are somewhat improved from when he was admitted. Anxiety symptoms subsequently impact his mood. He states that he has been eating sleep has improved with the trazodone. He has been in contact with his family via phone and anticipates them visiting this weekend. He continues to avoid groups due to anxiety feelings. We discussed some strategies to employ while trying to attend groups to mitigate that anxiety. We reviewed his psychotropic medication and he is agreeable to having the titrate that to 100 mg. He would also like us to switch the dosing to daytime rather than bedtime. Mental status exam: The patient is a male appearing his stated age he is thin and he is dressed in his own clothing hygiene grooming adequate. Eye contact appropriate speech is fluent spontaneous nonpressured. He is cooperative throughout the session and easily directable. He reports feeling safe in the hospital he reports no homicidal ideation intent or plan. He will have some occasional hopeless thoughts but feels that those are improving each day. He is reporting no auditory or visual hallucinations or any specific delusions. There is no observed evidence of psychosis. He demonstrates no loose associations tangential thinking or flight of ideas. He does not appear hypomanic or manic. He remains oriented to person place and date. Insight and judgment appear to be slowly improving. Plan: We will titrate the patient Zoloft 200 mg daily continue the trazodone. Were hoping the Zoloft will address his depressive and anxiety symptoms. We discussed strategies in terms of dealing with his anxiety specifically panic attacks. He is encouraged to participate in the milieu. We spent several minutes discussing his use of alcohol and strategies for remaining sober. We reviewed that he will follow up with [facility] for outpatient services. We will continue to monitor him for safety. If he demonstrates sufficient improvement over the weekend he may be appropriate for discharge Tuesday.
[2019-05-04] MEDS: ACETAMINOPHEN TAB 325 MG TAB PO PRN (19:32)
[2019-05-04] MEDS: traZODone HCL 50 MG TAB PO SCH (20:58)
[2019-05-05] MEDS: NICOTINE 21MG/24HR PATCH TRANSDERM SCH (08:36)
[2019-05-05] MEDS: SERTRALINE 100 MG TAB PO SCH (08:37)
[2019-05-05] MEDS: FOLIC ACID 1 MG TAB PO SCH (08:37)
[2019-05-05] MEDS: THIAMINE 100 MG TAB PO SCH (08:37)
[2019-05-05] MEDS: PANTOPRAZOLE 40 MG TABLET PO SCH (08:37)
[2019-05-05] MEDS: LORazepam 1 MG TAB PO PRN ×2 (08:37→16:30)
--- NOTE | 2019-05-05 08:37 | P.PN ---
Progress Note - Text Interval history: The patient is found in the dining room he follows me to an interview room. He indicates his mood continues to improve. He is looking forward to a visit from several family members. He continues to state that he is looking forward to remaining sober upon discharge. Again we discussed strategies for remaining sober as an outpatient. He is encouraged to attend AA and get a sponsor in that he does not wish to attend inpatient chemical dependency treatment after his discharge from this unit. We reviewed his psych otropic medication the Zoloft will increase to 100 mg today. His sleep has been adequate he is eating he continues to avoid groups. Again he is encouraged to attend. Mental status exam: The patient's a thin male appearing his stated age she has good hygiene grooming eye contact is appropriate he is dressed in his own clothing. Speech is fluent and spontaneous nonpressured he denies having any suicidal ideation intent or plan he is reporting no homicidal ideation intent or plan. He is endorsing no auditory or visual hallucinations or any specific delusions. There is no observed evidence of psychosis. Thought process is linear he demonstrates no tangential thinking loose associations or flight of ideas. Insight and judgment improving. He remains oriented to person place and date. Affect is euthymic and appropriately expresses. Plan: The patient is clinically stabilizing. We will continue his medications as written. Once again he is encouraged to attend groups. Vital signs reviewed. We are monitoring his use of Ativan. I plan to discharge him Tuesday if he continues to demonstrate clinical improvement.
[2019-05-05] MEDS: traZODone HCL 50 MG TAB PO SCH (21:03)
[2019-05-06] MEDS: SERTRALINE 100 MG TAB PO SCH (08:46)
[2019-05-06] MEDS: NICOTINE 21MG/24HR PATCH TRANSDERM SCH (08:46)
[2019-05-06] MEDS: PANTOPRAZOLE 40 MG TABLET PO SCH (08:46)
[2019-05-06] MEDS: THIAMINE 100 MG TAB PO SCH (08:46)
[2019-05-06] MEDS: FOLIC ACID 1 MG TAB PO SCH (08:46)
[2019-05-06] MEDS: LORazepam 1 MG TAB PO PRN ×2 (08:50→17:06)
--- NOTE | 2019-05-06 10:39 | P.PN ---
Progress Note - Text Interval history: The patient is found in his room he follows me to an interview room. He reports his mood continues to improve. He has been speaking with family via phone. He has no questions or concerns regarding medication. He is looking forward to our anticipated discharge tomorrow. Appetite has been stable. He reports having some difficulty sleeping last night due to verbal disturbances on the unit. Mental status exam: The patient is alert he is dressed in his own clothing hygiene grooming are good. Eye contact is appropriate speech is fluent spontaneous nonpressured. He reports no suicidal ideation intent or plan. He demonstrates no evidence of psychosis hypomania or romario. Affect is appropriately expresses. Insight and judgment improving. He remains oriented to person place and date. He describes no thoughts of harming others. Plan: The patient will continue on his current psychotropic medication. We will monitor him for safety he is encouraged to attend groups although he continues to refuse. Vital signs reviewed. He is clinically stabilizing and we will anticipate a discharge tomorrow.
[2019-05-06] MEDS: ACETAMINOPHEN TAB 325 MG TAB PO PRN (12:53)
[2019-05-06] MEDS: traZODone HCL 50 MG TAB PO SCH (21:01)
[2019-05-07 06:35] VITALS: BP 104/64; PULSE 63; RESP 16; TEMP 98.4
[2019-05-07] MEDS: THIAMINE 100 MG TAB PO SCH (08:32)
[2019-05-07] MEDS: NICOTINE 21MG/24HR PATCH TRANSDERM SCH (08:32)
[2019-05-07] MEDS: FOLIC ACID 1 MG TAB PO SCH (08:32)
[2019-05-07] MEDS: LORazepam 1 MG TAB PO PRN (08:32)
[2019-05-07] MEDS: SERTRALINE 100 MG TAB PO SCH (08:32)
[2019-05-07] MEDS: PANTOPRAZOLE 40 MG TABLET PO SCH (08:32)
--- NOTE | 2019-05-07 08:45 | P.DS ---
Providers Date of admission: 05/01/19 04:06 Expected date of discharge: 05/07/19 Attending physician: Rich Leiva Consults: 05/01/19 04:24 Consult Physician Routine Consulting Provider: John Physician Consult Reason/Comments: H & P w/medical managment Do you want consulting provider notified?: Already Contacted Primary care physician: Daphne Yi - Discharge Diagnosis(es) (1) Major depressive disorder, recurrent severe without psychotic features Current Visit: Yes Status: Acute Priority: High (2) Generalized anxiety disorder Current Visit: Yes Status: Acute Priority: Medium (3) Panic attacks Current Visit: Yes Status: Acute Priority: High (4) Alcohol use disorder, moderate, dependence Current Visit: Yes Status: Acute Priority: Medium Hospital Course: Brief summary of admission note: This patient is a 38-year-old male who was admitted to the mental health unit for suicidal ideation. He reported experiencing worsening symptoms of depression over the last year. He had been tearful sleep has been impaired energy level low and he had been feeling hopeless. He had been experiencing more symptoms of anxiety. He describes a long history of general anxiety throughout his life and he had been experiencing to panic attacks a week. The patient also states that he has been drinking heavily since the beginning of this past summer. For full details please refer to the psychiatric evaluation dated 05/01/2019. Summary of hospital course: The patient was admitted to the mental health unit voluntarily. We reviewed his presenting symptoms and treatment options. We decided to initiate Zoloft for depressive anxiety symptoms and we titrated the dose of that medicine 200 mg during his stay. He was also prescribed trazodone 50 mg at bedtime as needed for insomnia. He was monitored for any signs of alcohol withdrawal. He demonstrated no significant alcohol withdrawal symptoms. He was seen by internal medicine for routine history and physical exam. Social work met with the patient to complete a psychosocial assessment to begin discharge planning. Several times we discussed having him participate in inpatient chemical dependency treatment but he deferred that option. We discussed initiating naltrexone but he deferred that as well. During the course of the hospitalization he reported a progressive improvement of symptoms including anxiety. At this time he is stable for discharge to outpatient care. Mental status exam: The patient is alert he is a male appearing his stated age she presents with good hygiene grooming eye contact is appropriate. Speech is fluent spontaneous nonpressured. He indicates his mood is good. He denies having any suicidal ideation intent or plan. He reports no homicidal abigail ation intent or plan. He no longer feels hopeless. He reports no auditory or visual hallucinations or any specific delusions. There is no observed evidence of psychosis. He demonstrates no tangential thinking loose associations or flight of ideas there is no evidence of hypomania or romario. He is calm cooperative throughout the session affect is euthymic he demonstrates an appropriate range of expression. He demonstrates no verbal or physical aggressiveness he demonstrates no involuntary repetitive movements. Insight and judgment are grossly intact. He remains oriented to person place and date. Impressions 1. Major depressive disorder recurrent severe without psychosis, generalized anxiety disorder, panic attacks, alcohol use disorder moderate Plan: The patient will be discharged mental health unit today he will return home residing with family. He will continue on Zoloft 100 mg daily trazodone 50 mg at bedtime. He is instructed to abstain from any use of alcohol marijuana or any other substance. We discussed that these substances will provoke mood symptoms and elevate his safety risk. Again he has declined attendance at inpatient chemical dependency treatment. He has declined use of naltrexone. He is strongly encouraged to attend AA groups daily and obtain a sponsor. At this time there is no imminent safety risk is appropriate for transition to outpatient care. He is instructed to return to the hospital any acute safety concerns. Patient Condition at Discharge: Stable Plan - Discharge Summary New Discharge Prescriptions: New traZODone HCL [Desyrel] 50 mg PO HS #30 tab Nicotine 21Mg/24Hr Patch [Habitrol] 1 patch TRANSDERM DAILY #14 patch Sertraline [Zoloft] 100 mg PO DAILY #30 tab Continue Rosuvastatin Calcium [Crestor] 40 mg PO HS Omeprazole 20 mg PO DAILY Discontinued ALPRAZolam [Xanax] 1 mg PO TID PRN PRN Reason: Anxiety Diazepam [Valium] 5 mg PO Q8HR PRN 3 Days #9 tab PRN Reason: Alcohol Withdrawal Discharge Medication List Omeprazole 20 mg PO DAILY 03/01/19 [History] Rosuvastatin Calcium [Crestor] 40 mg PO HS 03/01/19 [History] Nicotine 21Mg/24Hr Patch [Habitrol] 1 patch TRANSDERM DAILY #14 patch 05/07/19 [Rx] Sertraline [Zoloft] 100 mg PO DAILY #30 tab 05/07/19 [Rx] traZODone HCL [Desyrel] 50 mg PO HS #30 tab 05/07/19 [Rx] Follow up Appointment(s)/Referral(s): [facility] [Outside] - 05/08/19 10:30 am Paolo Dominguez [facility] [REFERRING] - 1-2 days Activity/Diet/Wound Care/Special Instructions: Activity and diet as tolerated. Avoid the use of street drugs and alcohol. Take all medications as prescribed. When you are in need of refills on your medications please contact your medical provider and/or outpatient psychiatrist to have this done. Please go to scheduled outpatient appointment for aftercare treatment. If symptoms return or become worse, call the crisis line at and/or go to the nearest emergency room for evaluation.
== END 2019-05-07 13:21 | disposition home or self-care (01) | DRG 885 ==
LOC: EC 17:32 → 3MHU 05-01 04:06
PROVIDERS: ADMIT Psychiatry & Neurology Psychiatry; ATTEND Psychiatry & Neurology Psychiatry
DX: F33.2 Major depressive disorder, recurrent severe without psychotic features (principal); E87.2 Acidosis; R45.851 Suicidal ideations; F10.229 Alcohol dependence with intoxication, unspecified; Y90.8 Blood alcohol level of 240 mg/100 ml or more; Z71.6 Tobacco abuse counseling; F17.210 Nicotine dependence, cigarettes, uncomplicated; F41.0 Panic disorder [episodic paroxysmal anxiety]; F41.1 Generalized anxiety disorder; Z83.3 Family history of diabetes mellitus; Z79.899 Other long term (current) drug therapy; F90.9 Attention-deficit hyperactivity disorder, unspecified type; K21.9 Gastro-esophageal reflux disease without esophagitis
CPT/HCPCS: 36415; 80048; 80053; 80061; 80306; 80320; 82075; 82248; 83036; 83735; 84443; 85025; 99285

== ENCOUNTER 2020-02-09 10:39 | Emergency (ER) | payer OTHER ==
[2020-02-09 10:52] VITALS: BP 159/100; PULSE 98; TEMP 98.4
--- NOTE | 2020-02-09 10:57 | ED ---
General Adult HPI - General Chief complaint: Recheck/Abnormal Lab/Rx Stated complaint: opioid withdrawal Time Seen by Provider: 02/09/20 10:55 Source: patient Mode of arrival: ambulatory Limitations: no limitations - History of Present Illness Initial comments: She is a 39-year-old male presenting to the emergency department with a chief complaint of opiate withdrawal. Patient states she has been taking Percocet for the past 5 months. Patient states initially started with 1 Percocet per day and 90s up to 5 tablets per day. Patient states he has been buying off the street. Patient states the last time he took the medication was yesterday morning. States night feels like he is crawling out of his skin. He also reports some diarrhea and also his anxiety has greatly increased. He does have history of anxiety used to take benzodiazepines daily but not for over a year. States he currently does not have a primary care physician. Patient states he wants to start detoxing. He denies any other complaints. - Related Data Home Medications Medication Instructions Recorded Confirmed Omeprazole 20 mg PO DAILY 03/01/19 03/01/19 Rosuvastatin Calcium [Crestor] 40 mg PO HS 03/01/19 03/01/19 Previous Rx's Medication Instructions Recorded Nicotine 21Mg/24Hr Patch [Habitrol] 1 patch TRANSDERM DAILY #14 patch 05/07/19 Sertraline [Zoloft] 100 mg PO DAILY #30 tab 05/07/19 traZODone HCL [Desyrel] 50 mg PO HS #30 tab 05/07/19 ALPRAZolam [Xanax] 1 mg PO HS #3 tab 02/09/20 Allergies Allergy/AdvReac Type Severity Reaction Status Date / Time No Known Allergies Allergy Verified 02/09/20 10:51 Review of Systems ROS Statement: Those systems with pertinent positive or pertinent negative responses have been documented in the HPI. ROS Other: All systems not noted in ROS Statement are negative. Past Medical History Past Medical History: GERD/Reflux Additional Past Medical History / Comment(s): L1 and L2 fractures with bracing History of Any Multi-Drug Resistant Organisms: None Reported Past Surgical History: Back Surgery Additional Past Surgical History / Comment(s): Right second knuckle pinning due to fracture Past Psychological History: ADD/ADHD, Anxiety, Depression Smoking Status: Current every day smoker Past Alcohol Use History: Daily, Heavy Past Drug Use History: Opiates - Past Family History Father Family Medical History: Diabetes Mellitus Mother Family Medical History: Diabetes Mellitus Additional Family Medical History / Comment(s): immune deficiency General Exam Limitations: no limitations General appearance: alert, in no apparent distress, anxious Head exam: Present: atraumatic, normocephalic, normal inspection Eye exam: Present: normal appearance, PERRL, EOMI Pupils: Present: normal accommodation, mydriatic ENT exam: Present: normal exam, normal oropharynx, mucous membranes moist, TM's normal bilaterally, normal external ear exam Neck exam: Present: normal inspection, full ROM. Absent: tenderness Respiratory exam: Present: normal lung sounds bilaterally. Absent: respiratory distress, wheezes, rales Cardiovascular Exam: Present: regular rate, normal rhythm, normal heart sounds GI/Abdominal exam: Present: soft. Absent: distended, tenderness, guarding, rebound Extremities exam: Present: normal inspection, full ROM, normal capillary refill. Absent: tenderness Back exam: Present: normal inspection, full ROM. Absent: tenderness, CVA tenderness (R), CVA tenderness (L) Neurological exam: Present: alert, oriented X3 Psychiatric exam: Present: normal affect, normal mood Skin exam: Present: warm, dry, intact, normal color Course Vital Signs 02/09/20 10:48 Temperature 98.4 F Pulse Rate 98 Respiratory 18 Rate Blood Pressure 159/100 O2 Sat by Pulse 98 Oximetry Medical Decision Making - Medical Decision Making Patient is a 39-year-old male presenting to the emergency department with a chief complaint of opiate withdrawal. Patient is currently exhibiting withdr awal signs and symptoms. Give the patient milligram of Ativan and we'll discharge him with 3 tablets of 1 mg of Xanax. I gave the patient thorough information regarding detox facilities. Also given multiple contacts for obtaining a primary care physician. I also talked him about the importance of having a primary care physician. Strict return parameters were thoroughly discussed with patient who is understanding agreeable. Case discussed with physician. Disposition Clinical Impression: Acute anxiety, Narcotic withdrawal Disposition: HOME SELF-CARE Condition: Stable Instructions (If sedation given, give patient instructions): Opioid Withdrawal (ED) Additional Instructions: Take prescribed medication as directed. Follow up with a detox facility. Information was provided to you. Also follow-up with a primary care physician. Multiple primary care physician contacts were also provided to you. Prescriptions: ALPRAZolam [Xanax] 1 mg PO HS #3 tab Is patient prescribed a controlled substance at d/c from ED?: No Referrals: None,Stated [Primary Care Provider] - 1-2 days Won Castaneda MD [Medical Doctor] - 1-2 days Josh Granda MD [REFERRING] - 1-2 days Time of Disposition: 11:26
[2020-02-09] MEDS ORDERED: LORazepam 1 MG TAB PO STA (11:14)
[2020-02-09 11:26] VITALS: RESP 16
== END 2020-02-09 11:53 | disposition home or self-care (01) ==
LOC: EC 10:39
DX: F11.23 Opioid dependence with withdrawal (principal); F17.200 Nicotine dependence, unspecified, uncomplicated; K21.9 Gastro-esophageal reflux disease without esophagitis; Z79.899 Other long term (current) drug therapy
CPT/HCPCS: 99283

== ENCOUNTER 2020-10-23 16:53 | Emergency (ER) | payer OTHER ==
[2020-10-23 16:59] VITALS: BP 131/85; PULSE 99; RESP 20; TEMP 98.9
--- NOTE | 2020-10-23 17:32 | XR ---
EXAMINATION TYPE: XR hand complete LT DATE OF EXAM: 10/23/2020 COMPARISON: NONE HISTORY: Pain. Injury. TECHNIQUE: 3 views FINDINGS: Metacarpals appear intact. I see no fracture nor dislocation. There is slight widening of t he joint space between the third and fourth proximal metacarpals. There are no erosions. There is no subluxation. IMPRESSION: No fracture. Possible ligamentous tear involving the carpometacarpal joints as above.
--- NOTE | 2020-10-23 17:33 | XR ---
EXAMINATION TYPE: XR wrist complete LT DATE OF EXAM: 10/23/2020 COMPARISON: NONE HISTORY: Crush injury. Pain. TECHNIQUE: 4 views FINDINGS: Carpal bones are intact. I see no fracture nor dislocation. Radiocarpal joint appears armin l. IMPRESSION: Negative left wrist exam.
[2020-10-23] MEDS ORDERED: DIPH,PERTUS(ACELL)TETVAC-LF 0.5 ML VIAL IM ONE (17:41)
--- NOTE | 2020-10-23 18:13 | XR ---
EXAMINATION TYPE: XR shoulder complete LT DATE OF EXAM: 10/23/2020 COMPARISON: NONE HISTORY: Pain TECHNIQUE: 3 views FINDINGS: I see no fracture nor dislocation. Glenohumeral joint is intact. There are no pathologic ca lcifications. IMPRESSION: Negative left shoulder exam. No fracture.
--- NOTE | 2020-10-23 18:55 | ED ---
General Adult HPI - General Chief complaint: Extremity Injury, Upper Stated complaint: Hand injury Time Seen by Provider: 10/23/20 17:26 Source: patient Mode of arrival: ambulatory Limitations: no limitations - History of Present Illness Initial comments: Patient is a 40-year-old male who presents emergency Department complaining of left hand and shoulder pain after an accident at work. Patient's arm got stuck in a pickle conveyor belt and was pulled along. He states he ripped his arm out, however afterwards he had some abrasions over the posterior aspect of his left fingers as well as pain in his hand as well as left shoulder. He presents emergency department for evaluation after the injury. Denies any numbness. He describes pain near his fingertips that shoots up his left arm. Denies any neck pain. He is able to have full range of motion of his left shoulder as well as left elbow and wrist. He has reduced range of motion of his left fingertips. He states he took ibuprofen prior to arrival and declines any analgesia at this time. He is not up-to-date on astonishment. Denies any other injuries from the accident. Patient presents for evaluation following the injury. - Related Data Previous Rx's Medication Instructions Recorded Sertraline [Zoloft] 100 mg PO DAILY #30 tab 05/07/19 traZODone HCL [Desyrel] 50 mg PO HS #30 tab 05/07/19 ALPRAZolam [Xanax] 1 mg PO HS #3 tab 02/09/20 Allergies Allergy/AdvReac Type Severity Reaction Status Date / Time No Known Allergies Allergy Verified 10/23/20 16:59 Review of Systems ROS Statement: Those systems with pertinent positive or pertinent negative responses have been documented in the HPI. Review of Systems: CONST: Denies fever EYES: Denies blurry vision ENT: Denies nasal congestion C/V: Denies Chest pain RESP: Denies shortness of breath GI: Denies abdominal pain : Denies dysuria SKIN: Endorses abrasions MSK: Endorses joint pain NEURO: Denies headache ROS Other: All systems not noted in ROS Statement are negative. Past Medical History Past Medical History: GERD/Reflux Additional Past Medical History / Comment(s): L1 and L2 fractures with bracing History of Any Multi-Drug Resistant Organisms: None Reported Past Surgical History: Back Surgery Additional Past Surgical History / Comment(s): Right second knuckle pinning due to fracture Past Psychological History: ADD/ADHD, Anxiety, Depression Smoking Status: Current every day smoker Past Alcohol Use History: Daily, Heavy Past Drug Use History: Opiates - Past Family History Father Family Medical History: Diabetes Mellitus Mother Family Medical History: Diabetes Mellitus Additional Family Medical History / Comment(s): immune deficiency General Exam - General Exam Comments Initial Comments: General: Appears in no acute distress. HEAD: Normal with no signs of head trauma. EYES: EOMI ENT: Hearing grossly intact. RESPIRATORY: Clear breath sounds bilaterally. C/V: Regular rate and rhythm. Peripheral pulses are 2+ and intact throughout. ABD: Abdomen is nondistended. EXT: Patient is able to approximate all fingers to the left thumb. He has reduced flexion of all 5 fingers secondary to pain in his hand. Is intact for range of motion left wrist, elbow, shoulder, some pain over the lateral aspect of his left shoulder. He also has pain on palpation of the bilateral medial and lateral sides of the wrist as well as over the metacarpals and fingers. SKIN: Patient has abrasions to the posterior aspect of the middle 3 fingers are approximately 0.5 cm in size each. They're not actively bleeding. NEURO: Alert and oriented 4. No focal sensory strength deficits. Limitations: no limitations Course Vital Signs 10/23/20 16:55 Temperature 98.9 F Pulse Rate 99 Respiratory 20 Rate Blood Pressure 131/85 O2 Sat by Pulse 98 Oximetry Medical Decision Making - Medical Decision Making Based on the patient's presentation and physical exam, I'm concerned for possible acute on the trunk injury patient's left hand, wrist, or left shoulder. He does require a tetanus booster which will be provided to him. I offered an analgesia which she declined. We will obtain plain films of the patient's left wrist, hand, shoulder. He was in agreement with this plan. Patient's x-rays are negative for acute fracture or subluxation. I reviewed the imaging with the patient and believe it is safe for him to be discharged on some close follow-up. He was in agreement with the plan. He declines any analgesia prescriptions at this time.There is concern for possible ligamentous tear amongst the metacarpal joints, however patient does have full range of motion my suspicion is low. I discussed this with the patient he states he'll follow up with his PCP. I instructed the patient to follow up with their PCP in the next 3 days. I explained that the patient should return to the emergency department if they experience any worsening symptoms. Strict return precautions were discussed with the patient. The patient expressed understanding of these instructions. I answered all questions that the patient had. The patient was discharged home in good condition with their prescriptions and follow up information. Disposition Clinical Impression: Hand pain, Muscle strain, Abrasion Disposition: HOME SELF-CARE Condition: Good Instructions (If sedation given, give patient instructions): Hand Sprain (ED) Is patient prescribed a controlled substance at d/c from ED?: No Referrals: None,Stated [Primary Care Provider] - 1-2 days
== END 2020-10-23 19:15 | disposition home or self-care (01) ==
LOC: EC 16:53
DX: S66.912A Strain of unspecified muscle, fascia and tendon at wrist and hand level, left hand, initial encounter (principal); S46.912A Strain of unspecified muscle, fascia and tendon at shoulder and upper arm level, left arm, initial encounter; K21.9 Gastro-esophageal reflux disease without esophagitis; F32.9 Major depressive disorder, single episode, unspecified; F41.9 Anxiety disorder, unspecified; F17.200 Nicotine dependence, unspecified, uncomplicated; F11.90 Opioid use, unspecified, uncomplicated; Z23 Encounter for immunization; Z79.899 Other long term (current) drug therapy; Z83.3 Family history of diabetes mellitus; W22.8XXA Striking against or struck by other objects, initial encounter; Y99.0 Civilian activity done for income or pay
CPT/HCPCS: 90471; 90715; 99283